=== PATIENT | male | born 1980 | race African-American/Black ===

== ENCOUNTER 2023-07-22 11:55 | Emergency (ER) | payer MEDICARE, OTHER ==
[2023-07-22 13:59] LABS: #Monocytes 1.2 thou/uL (0.11-0.59); #Neutrophils 8.1 thou/uL (1.40-6.50); %Basophils 0.4 % (0.0-1.0); %Eosinophils 0.2 % (0.0-10.0); %Lymphocytes 10.8 % (21.0-51.0); %Neutrophils 77.1 % (42.0-75.0); Hematocrit 45.1 % (42.0-52.0); Hemoglobin 14.6 g/dL (14.0-18.0); Mean Corpuscular HGB CONC 32.4 g/dL (32.0-36.0); Mean Corpuscular Hemoglobin 31.7 pg (27.0-31.0); Mean Corpuscular Volume 97.8 fl (78.0-98.0); Mean Platelet Volume 9.9 fL (7.4-10.4); Platelet Count 322 10x3/uL (130-400); RBC Distribution Width 12.3 % (11.5-14.5); Red Blood Cell (RBC) Count 4.61 mill/uL (4.70-6.10); White Blood Cell (WBC) Count 10.5 10x3/uL (4.8-10.8)
[2023-07-22 14:19] LABS: Bacteria/HPF None Seen HPF (None Seen); Bilirubin Negative (Negative); Blood, Urine Negative (Negative); CAUTI Indications for Culture Alt mental st,lethar; Clarity Clear (Clear); Glucose, Urine (Dipstick) Normal (Negative); Ketone, Urine Negative (Negative); Leukocyte Negative Leu/uL (Negative); Nitrite Negative (Negative); Protein, Urine (Dipstick) 20 mg/dL (Neg-Trace); RBC/HPF 0-3 HPF (0-3); Specific Gravity, Urine 1.024 (1.002-1.036); Squamous Epithelial None Seen HPF (0-3); Urobilinogen Normal mg/dL (Less than 2); WBC/HPF 0-3 HPF (0-3)
[2023-07-22 14:19] LABS: Acetaminophen Less than 10 mcg/mL (10.0-30.0); Alcohol Less than 10.0 mg/dL (Less than 10); Salicylate Less than 8.0 mg/dL (15.0-30.0)
[2023-07-22 14:20] LABS: ALT (SGPT) 29 U/L (8-55); AST (SGOT) 60 U/L (5-34); Albumin 4.2 g/dL (3.5-5.0); Alcohol Less than 10.0 mg/dL (Less than 10); Alkaline Phosphatase 85 U/L (40-110); Anion Gap 15 mmol/L (10-20); BUN (Urea Nitrogen) 20 mg/dL (8.9-20.6); Calc. Creatinine Clearance 0 mL/min (70-130); Calcium 9.8 mg/dL (7.8-10.44); Carbon Dioxide 22 mmol/L (22-29); Chloride 98 mmol/L (98-107); Estimated GFR 68; Globulin 4.4 g/dL (2.4-3.5); Glucose 113 mg/dL (70-105); Potassium 3.8 mmol/L (3.5-5.1); Protein, Total 8.6 g/dL (6.0-8.3); Sodium 131 mmol/L (136-145)
[2023-07-22 14:21] LABS: Urine Culture Reflex No No
[2023-07-22 14:24] LABS: Amphetamine Detected (NotDetected); Barbiturates Screen Not Detected (NotDetected); Benzodiazepine Screen Not Detected (NotDetected); Cocaine Metabolite Screen Detected (NotDetected); Methadone Not Detected (NotDetected); Methamphetamine Detected (NotDetected); Opiate Screen Not Detected (NotDetected); Oxycodone Screen Not Detected (NotDetected); Phencyclidine (PCP) Not Detected (NotDetected); THC/Cannabinoid Screen Not Detected (NotDetected); Tricyclic Screen Not Detected (NotDetected)
== END 2023-07-22 15:22 ==
LOC: ERS 11:55 → EEVIPCON 11:55 → ERS 15:22
DX: R41.82 Altered mental status, unspecified (principal); R94.4 Abnormal results of kidney function studies; F15.10 Other stimulant abuse, uncomplicated; F14.10 Cocaine abuse, uncomplicated; I10 Essential (primary) hypertension; F17.210 Nicotine dependence, cigarettes, uncomplicated
CPT/HCPCS: 36415; 70450; 80053; 80306; 80307; 81001; 84443; 85025